=== PATIENT | female | born 1985 | race Hispanic/Latino ===

== ENCOUNTER 2025-01-14 20:43 | Emergency (ER) | payer SELFPAY ==
[~2025-01-14] VITALS: Ht 149.9 cm; Wt 68.0 kg
[~2025-01-14 20:43] MED LIST: KEPPRA500 MG PO
[2025-01-14 22:21] VITALS: PULSE 60; RESP 16; TEMP 98.9
[2025-01-14 22:23] VITALS: BP 134/73; PULSE 60; RESP 16; TEMP 98.9; O2SAT 100
== END 2025-01-14 22:22 | disposition home or self-care (01) ==
LOC: FSED 20:51
DX: M25.562 Pain in left knee (principal); S80.02XA Contusion of left knee, initial encounter; W01.0XXA Fall on same level from slipping, tripping and stumbling without subsequent striking against object, initial encounter; Y93.01 Activity, walking, marching and hiking; Y92.89 Other specified places as the place of occurrence of the external cause; G40.909 Epilepsy, unspecified, not intractable, without status epilepticus; E78.00 Pure hypercholesterolemia, unspecified; F41.9 Anxiety disorder, unspecified; F32.A Depression, unspecified
CPT/HCPCS: 99283